=== PATIENT | male | born 1980 | race Caucasian/White ===

== ENCOUNTER 2017-07-22 05:19 | Emergency (ER) | payer SELFPAY ==
[~2017-07-22] VITALS: Ht 193 cm; Wt 97.5 kg
--- NOTE | 2017-07-22 05:19 | NUR ---
PT BIB GF FROM HOME, PT STATES HE HAS BEEN HAVING RIGHT SIDED CP AND CANT BREATH DEEP X2 DAYS. AT THIS MOMENT NO SOB BUT PAIN WHEN BREATHING IN DEEP 6/10 NONRADIATING. A/OX4 VSS NAD. WILL CONTINUE TO MONITOR FOR ANY CHANGES DURING THE SHIFT.
--- NOTE | 2017-07-22 05:36 | NUR ---
EKG AT BEDSIDE
--- NOTE | 2017-07-22 06:00 | NUR ---
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
[2017-07-22 06:12] LABS: BASOPHILS % (AUTO) 0.4 % (0.0-2.0); EOSINOPHILS # (AUTO) 0.1 /CMM (0.0-0.7); EOSINOPHILS % (AUTO) 1.2 % (0.0-6.0); HEMATOCRIT 40 % (39-51); HEMOGLOBIN 13.5 g/dL (13.5-17.5); LYMPHOCYTES # (AUTO) 2.5 /CMM (0.8-4.8); LYMPHOCYTES % (AUTO) 27.9 % (20.0-44.0); MEAN CORPUSCULAR HEMOGLOBIN 27 PG (26.0-33.0); MEAN CORPUSCULAR HGB CONC 34 g/dl (31.0-36.0); MEAN CORPUSCULAR VOLUME 81 fL (80-96); MONOCYTES # (AUTO) 0.9 /CMM (0.1-1.30); MONOCYTES % (AUTO) 10.6 % (2.0-12.0); NEUTROPHILS # (AUTO) 5.3 /CMM (1.8-8.9); NEUTROPHILS % (AUTO) 59.9 % (43.0-81.0); PLATELET COUNT (AUTO) 260 /CMM (150-450); RDW COEFFICIENT OF VARIATION 13.5 (11.5-15.0); RED BLOOD CELL COUNT(AUTO) 4.97 MIL/uL (4.5-6.0); WHITE BLOOD COUNT (AUTO) 8.8 K/uL (4.3-11.0)
[2017-07-22 06:26] LABS: CALCIUM, SERUM 9.2 mg/dL (8.5-10.1); CARBON DIOXIDE 26 mmol/L (21-32); CHLORIDE 104 mmol/L (98-107); CREATININE 0.9 mg/dL (0.6-1.3); GLUCOSE 109 mg/dL (74-106); POTASSIUM 3.8 mmol/L (3.5-5.1); SODIUM SERUM 141 mmol/L (136-145); UREA NITROGEN, BLOOD 21 mg/dL (7-18)
[2017-07-22 06:31] LABS: D-DIMER 0.31 mg/L(FEU (0.17-0.50); INR 0.96 (0.87-1.13)
[2017-07-22 06:35] LABS: TROPONIN I < 0.017 ng/mL (0.00-0.056)
[2017-07-22 07:32] VITALS: BP 113/74
== END 2017-07-22 07:33 | disposition home or self-care (01) ==
LOC: ER 05:28
DX: R07.9 Chest pain, unspecified (principal); E78.00 Pure hypercholesterolemia, unspecified; Z88.0 Allergy status to penicillin
CPT/HCPCS: 36415; 71045; 80048; 84484; 85025; 85378; 85730; 93005; 99285; A4606; Z7610